=== PATIENT | male | born 1955 | race Caucasian/White ===

== ENCOUNTER 2016-11-10 14:44 | Emergency (ER) | payer OTHER ==
[~2016-11-10] VITALS: Ht 177.8 cm; Wt 108.9 kg
[~2016-11-10 14:44] MED LIST: ASPIR 8181 M1 PO; BACLOFEN10 MG PO; BENADRYL25 MG PO; CALCIUM CARB1 TABLET PO; CARVEDILOL6.25 MG PO; CRESTOR40 MG PO; CYMBALTA60 MG PO; DEXILANT60 MG PO; DOXEPIN HCL150 MG PO; ENDOCET 7.5-321 EACH PO; FLEXERIL10 MG PO; FLOMAX0.4 MG PO; FLONASE16 G1 NS; GEMFIBROZIL600 MG PO; KLONOPIN1 MG PO; KLONOPIN2 MG PO; LASIX80 MG PO; LEVAQUIN500 MG PO; LEVAQUIN750 MG PO; LIDOCAINE700 MG TD; LIPITOR10 MG PO; LITE COAT ASPI325 M1 PO; MAXALT10 MG PO; MEDROL DOSEPAK4 MG PO; MOTRIN800 MG PO; NAPROSYN500 MG PO; OMEPRAZOLE40 M1 PO; OPANA ER15 MG PO; OXAYDO5 MG PO; OXYCONTIN80 MG PO; PLAVIX75 MG PO; POLYETHYLENE GL17 GM PO; SEROQUEL300 MG PO; SOMA350 M1 PO; TOPIRAGEN100 MG; VOLTAREN 1% GE100 GM TP; ZOFRAN8 MG PO; [UNRECOGNIZED DRUG - OTHER] PO
[2016-11-10 16:35] LABS: CHLORIDE 103 mEq/L (99-109); POTASSIUM 5.6 mEq/L (3.7-5.4)
[2016-11-10 16:36] LABS: SODIUM 138 mEq/L (136-147)
[2016-11-10 16:38] LABS: GLUCOSE 107 mg/dL (70-99)
[2016-11-10 16:39] LABS: ANION GAP 10 MEQ/L (2-14)
[2016-11-10 16:40] LABS: TOTAL BILIRUBIN 0.6 mg/dL (0.0-1.0)
[2016-11-10 16:41] LABS: ALKALINE PHOSPHATASE 74 IU/L (3-129); GFR ESTIMATE (CALCULATED) > 59 mL/min/
[2016-11-10 16:43] LABS: UREA NITROGEN (BUN) 19 mg/dL (9-23)
[2016-11-10] MEDS ORDERED: ROPINIROLE HCL0.5 MG PO (16:52)
[2016-11-10] MEDS ORDERED: OXYCONTIN20 MG PO (16:52)
[2016-11-10] MEDS ORDERED: PERCOCET 10/1 TABLET PO (16:52)
[2016-11-10] MEDS ORDERED: FLEXERIL10 MG PO (16:53)
[2016-11-10] MEDS ORDERED: MOVANTIK25 MG PO (16:54)
[2016-11-10] MEDS ORDERED: IMITREX100 MG PO (16:54)
[2016-11-10] MEDS ORDERED: ASPIR 8181 M1 PO (16:55)
[2016-11-10] MEDS ORDERED: VALTREX1000 MG PO (16:55)
[2016-11-10] MEDS ORDERED: ASTEPRO 0.15%30 ML BOTH NARES (16:56)
[2016-11-10 17:20] LABS: ADD MIUA? NO; BILIRUBIN NEGATIVE; BLOOD NEGATIVE; COLOR YELLOW ((YELLOW)); GLUCOSE (STRIP) NEGATIVE; KETONES NEGATIVE; LEUKOCYTES NEGATIVE; NITRITE NEGATIVE; PROTEIN (STRIP) 30; SPECIFIC GRAVITY 1.024 (1.000-1.030); UCUL ADDED? NO; UROBILINOGEN 0.2 MG/DL (0.2-1.0)
[2016-11-10 17:57] LABS: HEMATOCRIT 47.1 % (38.0-50.0); MCH 31.6 PG (29.0-34.0); MCHC 33.5 G/DL (30.0-36.0); MCV 94.2 FL (86-99); MEAN PLAT.VOLUME 9.2 uM^3 (9.0-12.4); PLATELET COUNT 306 K/uL (156-360); RBC DIS.WIDTH-CV 12.9 % (11.8-14.6); RBC DIS.WIDTH-SD 44.2 % (39-53); WHITE BLOOD COUNT 12.7 K/uL (4.1-10.2)
[2016-11-10] MEDS ORDERED: PROAIR HFA8.5 GM IH (18:41)
[2016-11-10 19:25] VITALS: BP 122/74
== END 2016-11-10 19:30 | disposition home or self-care (01) ==
LOC: EME 14:44
PROVIDERS: Nurse Practitioner Family
DX: J06.9 Acute upper respiratory infection, unspecified (principal); K21.9 Gastro-esophageal reflux disease without esophagitis; R11.2 Nausea with vomiting, unspecified; R19.7 Diarrhea, unspecified; M54.9 Dorsalgia, unspecified; R20.2 Paresthesia of skin; M25.569 Pain in unspecified knee; G89.29 Other chronic pain; I25.10 Atherosclerotic heart disease of native coronary artery without angina pectoris; Z79.02 Long term (current) use of antithrombotics/antiplatelets; Z79.82 Long term (current) use of aspirin; Z79.891 Long term (current) use of opiate analgesic; Z87.891 Personal history of nicotine dependence
CPT/HCPCS: 71020; 80053; 81003; 85027; 93005; 94640; 99281; 99284; J3010

== ENCOUNTER 2017-03-31 09:19 | Emergency (ER) | payer OTHER ==
[~2017-03-31] VITALS: Ht 177.8 cm; Wt 116.3 kg
[~2017-03-31 09:19] MED LIST changes: +ASTEPRO 0.15%30 ML BOTH NARES; +IMITREX100 MG PO; +MOVANTIK25 MG PO; +OXYCONTIN20 MG PO; +PERCOCET 10/1 TABLET PO; +PROAIR HFA8.5 GM IH; +ROPINIROLE HCL0.5 MG PO; +VALTREX1000 MG PO
[2017-03-31 10:01] LABS: EOSINOPHIL (%) 1.4 % (0-5); EOSINOPHIL COUNT 0.1 K/uL (0-0.3); HEMATOCRIT 37.7 % (38.0-50.0); IMMATURE GRANULOCYTE (%) 0.5 % (0.0-0.7); INSTRUMENT ABS NEUTROPHIL CT 4.2 K/uL; LYMPHOCYTE COUNT 3.1 K/uL (1.0-2.8); MCH 30.9 PG (29.0-34.0); MCHC 32.4 G/DL (30.0-36.0); MCV 95.4 FL (86-99); MEAN PLAT.VOLUME 8.7 uM^3 (9.0-12.4); MONOCYTE (%) 5.4 % (3-12); MONOCYTE COUNT 0.4 K/uL (0-0.8); NEUTROPHIL (%) 53.4 % (45-76); NEUTROPHIL COUNT 4.2 K/uL (1.8-6.4); PLATELET COUNT 159 K/uL (156-360); RBC DIS.WIDTH-CV 13.8 % (11.8-14.6); RBC DIS.WIDTH-SD 48.4 % (39-53); RED BLOOD COUNT 3.95 M/uL (4.00-5.50); WHITE BLOOD COUNT 7.8 K/uL (4.1-10.2)
[2017-03-31 10:14] LABS: CHLORIDE 109 mEq/L (99-109); POTASSIUM 3.8 mEq/L (3.7-5.4); SODIUM 140 mEq/L (136-147)
[2017-03-31 10:16] LABS: GLUCOSE 144 mg/dL (70-99)
[2017-03-31 10:18] LABS: ANION GAP 7 MEQ/L (2-14); TOTAL BILIRUBIN 0.4 mg/dL (0.0-1.0)
[2017-03-31 10:20] LABS: ALKALINE PHOSPHATASE 81 IU/L (3-129); GFR ESTIMATE (CALCULATED) > 59 mL/min/
[2017-03-31 10:21] LABS: UREA NITROGEN (BUN) 17 mg/dL (9-23)
[2017-03-31 10:22] LABS: DIRECT BILIRUBIN 0.2 mg/dL (0.0-0.3)
[2017-03-31 10:23] LABS: TROP-I INTERPRETATION NEGATIVE; TROPONIN-I < 0.01 ng/mL (0.0-0.30)
[2017-03-31 14:05] VITALS: BP 132/86
== END 2017-03-31 14:08 | disposition home or self-care (01) ==
LOC: EME 09:19
PROVIDERS: Emergency Medicine
DX: R06.00 Dyspnea, unspecified (principal); D86.9 Sarcoidosis, unspecified; M79.7 Fibromyalgia; K21.9 Gastro-esophageal reflux disease without esophagitis; I10 Essential (primary) hypertension; E78.5 Hyperlipidemia, unspecified; I25.10 Atherosclerotic heart disease of native coronary artery without angina pectoris; I25.2 Old myocardial infarction; Z95.5 Presence of coronary angioplasty implant and graft; Z79.82 Long term (current) use of aspirin; Z87.891 Personal history of nicotine dependence
CPT/HCPCS: 71020; 71275; 80048; 80076; 83880; 84484; 85025; 93005; 99281; 99285; J1100

== ENCOUNTER 2017-04-07 08:46 | Emergency (ER) | payer OTHER ==
[~2017-04-07] VITALS: Ht 180.3 cm; Wt 119.0 kg
[2017-04-07 08:49] VITALS: BP 137/99
== END 2017-04-07 10:38 | disposition home or self-care (01) ==
LOC: EME 08:46
DX: S60.211A Contusion of right wrist, initial encounter (principal); W22.09XA Striking against other stationary object, initial encounter; Y92.009 Unspecified place in unspecified non-institutional (private) residence as the place of occurrence of the external cause; K21.9 Gastro-esophageal reflux disease without esophagitis; I25.10 Atherosclerotic heart disease of native coronary artery without angina pectoris; I10 Essential (primary) hypertension; E78.5 Hyperlipidemia, unspecified; M79.7 Fibromyalgia; I25.2 Old myocardial infarction; Z95.5 Presence of coronary angioplasty implant and graft; Z79.82 Long term (current) use of aspirin
CPT/HCPCS: 73110; 99281; 99283

== ENCOUNTER 2017-04-26 14:38 | Emergency (ER) | payer OTHER ==
[~2017-04-26] VITALS: Ht 177.8 cm; Wt 116.0 kg
[2017-04-26 15:54] LABS: HEMATOCRIT 41.8 % (38.0-50.0); MCH 31.2 PG (29.0-34.0); MCHC 32.1 G/DL (30.0-36.0); MCV 97.4 FL (86-99); MEAN PLAT.VOLUME 8.2 uM^3 (9.0-12.4); RBC DIS.WIDTH-CV 13.2 % (11.8-14.6); RBC DIS.WIDTH-SD 47.4 % (39-53); RED BLOOD COUNT 4.29 M/uL (4.00-5.50); WHITE BLOOD COUNT 7.9 K/uL (4.1-10.2)
[2017-04-26 15:58] LABS: CHLORIDE 105 mEq/L (99-109); POTASSIUM 4.7 mEq/L (3.7-5.4); SODIUM 139 mEq/L (136-147)
[2017-04-26 16:00] LABS: GLUCOSE 141 mg/dL (70-99)
[2017-04-26 16:02] LABS: ANION GAP 10 MEQ/L (2-14); PLATELET COUNT 233 K/uL (156-360); TOTAL BILIRUBIN 0.8 mg/dL (0.0-1.0)
[2017-04-26 16:04] LABS: ALKALINE PHOSPHATASE 71 IU/L (3-129); GFR ESTIMATE (CALCULATED) > 59 mL/min/
[2017-04-26 16:05] LABS: UREA NITROGEN (BUN) 10 mg/dL (9-23)
[2017-04-26 16:47] LABS: LIPASE 7 U/L (1.0-51.0)
[2017-04-26 17:06] LABS: ADD MIUA? NO; BILIRUBIN NEGATIVE; BLOOD NEGATIVE; COLOR YELLOW ((YELLOW)); GLUCOSE (STRIP) NEGATIVE; KETONES NEGATIVE; LEUKOCYTES NEGATIVE; NITRITE NEGATIVE; PROTEIN (STRIP) NEGATIVE; SPECIFIC GRAVITY 1.017 (1.000-1.030); UCUL ADDED? NO; UROBILINOGEN 0.2 MG/DL (0.2-1.0)
[2017-04-26] MEDS ORDERED: MIRALAX17 GM PO (19:05)
[2017-04-26 19:33] VITALS: BP 106/74
[2017-04-27] MEDS ORDERED: DEXILANT30 MG PO (20:48)
[2017-04-27] MEDS ORDERED: ANORO ELLIPTA1 EACH IH (20:49)
[2017-04-27] MEDS ORDERED: HYDROMORPHONE E16 MG PO (20:56)
[2017-04-27] MEDS ORDERED: TOPAMAX25 MG PO (20:57)
[2017-04-27] MEDS ORDERED: IRON325 M1 PO (20:58)
[2017-04-27] MEDS ORDERED: SUPER CALCIUM600 MG PO (21:00)
[2017-04-27] MEDS ORDERED: DEPO-TESTOS100 MG/ML IM (21:02)
[2017-04-27] MEDS ORDERED: ALBUTEROL2.5 MG/3 M IH (21:05)
[2017-04-27] MEDS ORDERED: KLONOPIN0.5 M1 PO (21:11)
== END 2017-04-26 19:34 | disposition home or self-care (01) ==
LOC: EME 14:38
DX: K42.9 Umbilical hernia without obstruction or gangrene (principal); R11.0 Nausea; K59.00 Constipation, unspecified; Z79.891 Long term (current) use of opiate analgesic; I25.10 Atherosclerotic heart disease of native coronary artery without angina pectoris; Z95.5 Presence of coronary angioplasty implant and graft; Z79.02 Long term (current) use of antithrombotics/antiplatelets; Z79.82 Long term (current) use of aspirin; Z87.891 Personal history of nicotine dependence
CPT/HCPCS: 74177; 80053; 81003; 83690; 85027; 93005; 99281; 99284; J2405; J3010; J7030

== ENCOUNTER 2017-04-27 17:09 | Observation (INO) | payer OTHER ==
[~2017-04-27] VITALS: Ht 177.8 cm; Wt 117.3 kg
[~2017-04-27 17:09] MED LIST changes: +MIRALAX17 GM PO
[2017-04-27 17:56] LABS: EOSINOPHIL (%) 1.1 % (0-5); EOSINOPHIL COUNT 0.1 K/uL (0-0.3); HEMATOCRIT 42.1 % (38.0-50.0); IMMATURE GRANULOCYTE (%) 0.4 % (0.0-0.7); IMMATURE GRANULOCYTE COUNT 0.1 K/uL; INSTRUMENT ABS NEUTROPHIL CT 7.7 K/uL; LYMPHOCYTE COUNT 3.2 K/uL (1.0-2.8); MCH 31.6 PG (29.0-34.0); MCV 95.7 FL (86-99); MEAN PLAT.VOLUME 8.6 uM^3 (9.0-12.4); MONOCYTE (%) 7.8 % (3-12); MONOCYTE COUNT 0.9 K/uL (0-0.8); NEUTROPHIL (%) 63.9 % (45-76); NEUTROPHIL COUNT 7.7 K/uL (1.8-6.4); PLATELET COUNT 296 K/uL (156-360); RBC DIS.WIDTH-CV 13.2 % (11.8-14.6); RBC DIS.WIDTH-SD 46.5 % (39-53)
[2017-04-27 18:07] LABS: CHLORIDE 103 mEq/L (99-109); POTASSIUM 5.1 mEq/L (3.7-5.4); SODIUM 137 mEq/L (136-147)
[2017-04-27 18:09] LABS: GLUCOSE 141 mg/dL (70-99)
[2017-04-27 18:10] LABS: ANION GAP 15 MEQ/L (2-14)
[2017-04-27 18:11] LABS: TOTAL BILIRUBIN 0.9 mg/dL (0.0-1.0)
[2017-04-27 18:12] LABS: ALKALINE PHOSPHATASE 76 IU/L (3-129)
[2017-04-27 18:13] LABS: GFR ESTIMATE (CALCULATED) 51 mL/min/
[2017-04-27 18:14] LABS: UREA NITROGEN (BUN) 14 mg/dL (9-23)
[2017-04-27 18:16] LABS: LIPASE 13 U/L (1.0-51.0)
[2017-04-27 18:19] LABS: TROP-I INTERPRETATION NEGATIVE; TROPONIN-I < 0.01 ng/mL (0.0-0.30)
[2017-04-27 18:41] LABS: SERUM ETHYL ALCOHOL < 10 mg/dL
[2017-04-27] MEDS ORDERED: DEXILANT30 MG PO (20:48)
[2017-04-27] MEDS ORDERED: ANORO ELLIPTA1 EACH IH (20:49)
[2017-04-27] MEDS ORDERED: HYDROMORPHONE E16 MG PO (20:56)
[2017-04-27] MEDS ORDERED: TOPAMAX25 MG PO (20:57)
[2017-04-27] MEDS ORDERED: IRON325 M1 PO (20:58)
[2017-04-27] MEDS ORDERED: SUPER CALCIUM600 MG PO (21:00)
[2017-04-27] MEDS ORDERED: DEPO-TESTOS100 MG/ML IM (21:02)
[2017-04-27] MEDS ORDERED: ALBUTEROL2.5 MG/3 M IH (21:05)
[2017-04-27] MEDS ORDERED: KLONOPIN0.5 M1 PO (21:11)
[2017-04-27 21:24] VITALS: BP 147/77
[2017-04-28] VITALS: BP 115/79
[2017-04-28 03:58] VITALS: BP 117/71
[2017-04-28 06:10] LABS: HEMATOCRIT 36.8 % (38.0-50.0); MCH 31.3 PG (29.0-34.0); MCHC 31.8 G/DL (30.0-36.0); MCV 98.4 FL (86-99); MEAN PLAT.VOLUME 8.4 uM^3 (9.0-12.4); PLATELET COUNT 234 K/uL (156-360); RBC DIS.WIDTH-CV 13.2 % (11.8-14.6); RBC DIS.WIDTH-SD 47.6 % (39-53); RED BLOOD COUNT 3.74 M/uL (4.00-5.50)
[2017-04-28 06:24] LABS: ANION GAP 6 MEQ/L (2-14); CHLORIDE 106 MEQ/L (99-109); GFR ESTIMATE (CALCULATED) > 59 mL/min/; POTASSIUM 4.7 MEQ/L (3.7-5.4); SAMPLE HEMOLYSIS CHECK 0; SAMPLE ICTERIC CHECK 0; SAMPLE LIPEMIA CHECK 0; SODIUM 140 MEQ/L (136-147); UREA NITROGEN (BUN) 11 mg/dL (9-23)
[2017-04-28 06:28] LABS: GLUCOSE 91 mg/dL (70-99)
[2017-04-28 09:08] VITALS: BP 133/73
[2017-04-28] MEDS ORDERED: ZOFRAN4 MG PO (11:29)
== END 2017-04-28 12:30 | disposition home or self-care (01) ==
LOC: EME 17:09 → 5WEST 18:56 → EDOF 18:56 → CANRESERV 18:58 → ENRESERV 18:58 → 5WEST 21:22
PROVIDERS: Emergency Medicine; Hospitalist
DX: R11.2 Nausea with vomiting, unspecified (principal); E86.0 Dehydration; K59.00 Constipation, unspecified; N17.9 Acute kidney failure, unspecified; I25.10 Atherosclerotic heart disease of native coronary artery without angina pectoris; I25.2 Old myocardial infarction; Z95.5 Presence of coronary angioplasty implant and graft; E78.5 Hyperlipidemia, unspecified; I10 Essential (primary) hypertension; F32.9 Major depressive disorder, single episode, unspecified; G89.29 Other chronic pain; M79.7 Fibromyalgia; D86.9 Sarcoidosis, unspecified; K21.9 Gastro-esophageal reflux disease without esophagitis; Z87.891 Personal history of nicotine dependence; Z79.82 Long term (current) use of aspirin; Z82.49 Family history of ischemic heart disease and other diseases of the circulatory system; Z82.0 Family history of epilepsy and other diseases of the nervous system; Z91.040 Latex allergy status; Z88.5 Allergy status to narcotic agent; Z88.8 Allergy status to other drugs, medicaments and biological substances
CPT/HCPCS: 80048; 80053; 81003; 83605; 83690; 84484; 85025; 85027; 93005; 94640; 99202; 99281; 99285; G0378; G0480; J1630; J1644; J2060; J2405; J7030; S0028

== ENCOUNTER 2017-12-02 10:40 | Day surgery (SDC) | payer OTHER ==
[~2017-12-02] VITALS: Ht 179.1 cm; Wt 109.8 kg
[~2017-12-02 10:40] MED LIST changes: +ALBUTEROL2.5 MG/3 M IH; +ANORO ELLIPTA1 EACH IH; +DEPO-TESTOS100 MG/ML IM; +DEXILANT30 MG PO; +ELAVIL150 MG PO; +HYDROMORPHONE E16 MG PO; +IRON325 M1 PO; +KLONOPIN0.5 M1 PO; +SMOOTHLAX17 GM PO; +SUPER CALCIUM600 MG PO; +TOPAMAX25 MG PO; +ZANAFLEX4 M1 PO; +ZOFRAN4 MG PO
[2017-12-02 11:11] LABS: HEMATOCRIT 35.9 % (38.0-50.0); HEMOGLOBIN 11.9 G/DL (12.5-16.6); MCH 30.9 PG (29.0-34.0); MCHC 33.1 G/DL (30.0-36.0); MCV 93.2 FL (86-99); PLATELET COUNT 222 K/uL (156-360); RBC DIS.WIDTH-CV 13.2 % (11.8-14.6); RBC DIS.WIDTH-SD 44.8 % (39-53); RED BLOOD COUNT 3.85 M/uL (4.00-5.50); WHITE BLOOD COUNT 8.5 K/uL (4.1-10.2)
[2017-12-02 11:15] VITALS: BP 135/84
[2017-12-02] MEDS ORDERED: DEXILANT30 MG PO (11:15)
[2017-12-02] MEDS ORDERED: MOVANTIK25 MG PO (11:15)
[2017-12-02 11:17] VITALS: BP 135/84
[2017-12-02 11:43] LABS: ALBUMIN 3.9 G/DL (3.2-4.8); ALKALINE PHOSPHATASE 84 IU/L (3-129); ALT (GPT) 18 IU/L (3-49); AST (GOT) 22 IU/L (2-34); CHLORIDE 103 MEQ/L (99-109); CREATININE 1.2 MG/DL (0.6-1.3); GFR ESTIMATE (CALCULATED) > 59 mL/min/ (58.99-99999); GLUCOSE 109 mg/dL (70-99); SODIUM 137 MEQ/L (136-147); TOTAL BILIRUBIN 0.4 MG/DL (0.0-1.0); TOTAL PROTEIN 7.3 G/DL (6.4-8.3); UREA NITROGEN (BUN) 14 mg/dL (9-23)
[2017-12-02 11:55] LABS: APPEARANCE CLEAR ((CLEAR)); BILIRUBIN NEGATIVE; BLOOD SMALL; COLOR YELLOW ((YELLOW)); GLUCOSE (STRIP) NEGATIVE; KETONES NEGATIVE; LEUKOCYTES NEGATIVE; NITRITE NEGATIVE; PROTEIN (STRIP) NEGATIVE; SPECIFIC GRAVITY 1.013 (1.000-1.030); UROBILINOGEN 0.2 MG/DL (0.2-1.0)
[2017-12-02 12:05] LABS: BACTERIA NONE SEEN /HPF; EPITHELIAL CELLS NONE SEEN /HPF; MUCUS TRACE /LPF; WHITE BLOOD CELLS 0-5 /HPF (0-5)
[2017-12-02] MEDS ORDERED: COLACE100 MG PO (14:50)
[2017-12-02] MEDS ORDERED: DILAUDID2 MG PO (14:50)
[2017-12-02 17:00] VITALS: BP 125/78
[2017-12-02 18:11] VITALS: BP 135/85
== END 2017-12-02 18:20 | disposition home or self-care (01) ==
LOC: SDC 10:40
PROVIDERS: Surgery
PROC: 0WUF4JZ Supplement Abdominal Wall with Synthetic Substitute, Percutaneous Endoscopic Approach (ICD-10-PCS; principal; 2017-12-02)
DX: K42.9 Umbilical hernia without obstruction or gangrene (principal); K43.9 Ventral hernia without obstruction or gangrene; N40.0 Benign prostatic hyperplasia without lower urinary tract symptoms; I25.10 Atherosclerotic heart disease of native coronary artery without angina pectoris; I12.9 Hypertensive chronic kidney disease with stage 1 through stage 4 chronic kidney disease, or unspecified chronic kidney disease; N18.2 Chronic kidney disease, stage 2 (mild); K21.9 Gastro-esophageal reflux disease without esophagitis; Z95.5 Presence of coronary angioplasty implant and graft; Z87.891 Personal history of nicotine dependence; Z82.49 Family history of ischemic heart disease and other diseases of the circulatory system; Z88.5 Allergy status to narcotic agent; Z88.8 Allergy status to other drugs, medicaments and biological substances
CPT/HCPCS: 80053; 81003; 85027; 88302; C1781; J0690; J1100; J1170; J1885; J2250; J2405; J2710; J3475; J7120; J7643; S0020